=== PATIENT | male | born 1955 | race Caucasian/White ===

== ENCOUNTER → 2021-09-18 | Outpatient (CLI) | payer MEDICAID ==
[2021-09-18 19:57] LABS: Basophils # (A) 0.04 X 10*3/uL (0.00-0.10); Basophils % (A) 0.9 %; Eosinophils # (A) 0.29 X 10*3/uL (0.04-0.35); Eosinophils % (A) 6.2 %; HCT 46.9 % (39.6-50.0); HGB 15.6 g/dL (13.0-17.0); Lymphocytes % (A) 25.6 %; MCH 32.2 pg (27.0-32.0); MCHC 33.3 g/dL (32.0-37.0); MCV 96.7 fL (80.0-97.0); Mean Platelet Volume 10.6 fL (9.5-12.2); Monocytes # (A) 0.51 X 10*3/uL (0.20-1.00); Monocytes % (A) 10.9 %; Neutrophils # (A) 2.63 X 10*3/uL (1.80-7.70); Platelet Count 263 X 10*3/uL (140-440); RBC 4.85 X 10*6/uL (4.40-5.60); RDW 12.7 % (11.5-14.5); WBC 4.69 X 10*3/uL (4.50-10.00)
[2021-09-18 21:00] LABS: Chol/HDL Ratio 1.94 Ratio; LDL Cholesterol,Calculated 82.6 mg/dL (0.0-131.0); Triglycerides 62.2 mg/dL (0.00-149.00); VLDL Calculation 12.44 mg/dL (5.00-40.00)
[2021-09-19 00:42] LABS: African American GFR (CKD) 91.1 (60.0-200.0); Albumin 4.7 g/dL (3.8-4.9); Albumin/Globulin Ratio 1.68 (1.60-3.17); Anion Gap 13.2 mmol/L (4.00-12.00); Calcium 9.9 mg/dL (8.7-10.3); Carbon Dioxide 23.8 mmol/L (21.6-31.8); Globulin 2.8 g/dL (1.6-3.3); Non-African American GFR(CKD) 78.6 (60.0-200.0); PSA Annual Screen 0.6 ng/mL (0.000-4.000); Total Bilirubin 0.7 mg/dL (0.30-1.20); Total Protein 7.5 g/dL (6.2-8.2)
== END | disposition home or self-care (01) ==
LOC: LABWHC1 07:39
PROVIDERS: ATTEND Internal Medicine
DX: Z00.00 Encounter for general adult medical examination without abnormal findings (principal); Z12.5 Encounter for screening for malignant neoplasm of prostate
CPT/HCPCS: 80061; 80053; 85025; 36415; G0103

== ENCOUNTER → 2022-03-12 | Outpatient (CLI) | payer MEDICAID ==
--- NOTE | 2022-03-12 11:40 | CT ---
CT left ankle HISTORY: Presurgical Helical acquisition through the left ankle. Exam performed for preprocedure planning. Coronal and sag ittal reconstructions performed. Automated exposure control for dose reduction, DLP 729 mGycentimeter s No comparisons Osteoarthritic changes noted to the left knee, there is spurring, somewhat lateral displacement of th e patella relation to the femoral condyle, chronic. Some small loose bodies are suspected within the posterior aspect of the left knee joint, findings may be due to synovial ostial chondromatosis, kathrin nal spurring also present at the medial lateral compartments, osteoarthritic changes are present with joint space loss. Marked osteoarthritic changes present at the tibiotalar joint, joint space loss and subchondral scler osis. Geode formation present in the distal fibula. Subchondral cyst formation also present in the an kle mortise. There is soft tissue calcifications at the intertarsal regions, midfoot somewhat plateli ke and appearance. Suspect there is fluid present along the flexor hallucis longus tendon posterior t o the ankle joint, collection measuring 2.3 x 1.6 cm. Ossific density present posterior to the ankle joint measures 13 x 6 mm. Some flattening the ankle mortise, remodeling noted, difficult to exclude u nderlying osteonecrosis with secondary osteoarthritis. Spurring is present at the talonavicular joint . There is a plantar calcaneal spur present. IMPRESSION: Marked arthropathy changes are present, soft tissue calcifications. Procedure performed f or
== END | disposition home or self-care (01) ==
LOC: RADXRMAIN 09:34
PROVIDERS: ATTEND Orthopaedic Surgery Foot and Ankle Surgery
DX: Z01.818 Encounter for other preprocedural examination (principal); M12.872 Other specific arthropathies, not elsewhere classified, left ankle and foot; M79.89 Other specified soft tissue disorders

== ENCOUNTER → 2022-10-30 | Outpatient (CLI) | payer MEDICAID ==
[2022-10-30 14:35] LABS: Basophils # (A) 0.04 X 10*3/uL (0.00-0.10); Basophils % (A) 0.9 %; Eosinophils # (A) 0.26 X 10*3/uL (0.04-0.35); Eosinophils % (A) 5.7 %; HCT 46.6 % (39.6-50.0); Immature Grans, Automated 0.2 %; Lymphocytes % (A) 26.4 %; MCH 32.7 pg (27.0-32.0); MCHC 34.3 g/dL (32.0-37.0); MCV 95.3 fL (80.0-97.0); Mean Platelet Volume 10.3 fL (9.5-12.2); Monocytes # (A) 0.48 X 10*3/uL (0.20-1.00); Monocytes % (A) 10.6 %; NRBC Per 100 WBC 0 /100 WBCS (0.0-0.0); Neutrophils # (A) 2.55 X 10*3/uL (1.80-7.70); Neutrophils % (A) 56.2 %; Platelet Count 255 X 10*3/uL (140-440); RBC 4.89 X 10*6/uL (4.40-5.60); RDW 12.9 % (11.5-14.5); WBC 4.54 X 10*3/uL (4.50-10.00)
[2022-10-30 14:58] LABS: Chol/HDL Ratio 2.01 Ratio; LDL Cholesterol,Calculated 76.4 mg/dL (0.0-131.0)
== END | disposition home or self-care (01) ==
LOC: LABWHC1 07:05
PROVIDERS: ATTEND Internal Medicine
DX: Z00.00 Encounter for general adult medical examination without abnormal findings (principal); Z12.5 Encounter for screening for malignant neoplasm of prostate
CPT/HCPCS: 80061; 85025; 36415; G0103

== ENCOUNTER → 2023-10-30 | Outpatient (CLI) | payer MEDICAID ==
[2023-10-30 11:21] LABS: Basophils # (A) 0.05 X 10*3/uL (0.00-0.10); Eosinophils # (A) 0.28 X 10*3/uL (0.04-0.35); Eosinophils % (A) 5.7 %; HCT 44.1 % (39.6-50.0); HGB 14.9 g/dL (13.0-17.0); Lymphocytes # (A) 1.51 X 10*3/uL (0.90-5.00); Lymphocytes % (A) 30.6 %; MCH 31.9 pg (27.0-32.0); MCHC 33.8 g/dL (32.0-37.0); MCV 94.4 FL (80.0-97.0); Mean Platelet Volume 9.8 FL (9.5-12.2); Monocytes # (A) 0.57 X 10*3/uL (0.20-1.00); Monocytes % (A) 11.6 %; NRBC Per 100 WBC 0 X 10*3/uL (0.00-0.01); Neutrophils % (A) 50.7 %; Platelet Count 260 X 10*3/uL (140-440); RBC 4.67 X 10*6/uL (4.40-5.60); RDW 12.8 % (11.5-14.5); WBC 4.93 X 10*3/uL (4.50-10.00)
[2023-10-30 11:41] LABS: ALT 17 U/L (10-49); AST 20 U/L (14-35); Albumin 4.6 g/dL (3.8-4.9); Albumin/Globulin Ratio 1.59 Ratio (1.60-3.17); Alkaline Phosphatase 77 U/L (41-126); Blood Urea Nitrogen 18.6 mg/dL (9.0-27.0); Calcium 10.3 mg/dL (8.7-10.3); Chloride 102 mmol/L (96-109); Chol/HDL Ratio 2.03 Ratio; Globulin 2.9 g/dL (1.6-3.3); Glucose 102 mg/dL (70-110); LDL Cholesterol,Calculated 83.7 mg/dL (0.0-131.0); Potassium 4.6 mmol/L (3.5-5.5); Sodium 137 mmol/L (135-145); Total Bilirubin 0.8 mg/dL (0.3-1.2); Total Protein 7.5 g/dL (6.2-8.2)
[2023-10-30 11:48] LABS: PSA Annual Screen 0.667 ng/mL (0.000-4.000)
== END | disposition home or self-care (01) ==
LOC: LABWHC1 07:18
PROVIDERS: ATTEND Internal Medicine
DX: Z00.00 Encounter for general adult medical examination without abnormal findings (principal); Z12.5 Encounter for screening for malignant neoplasm of prostate
CPT/HCPCS: 80061; 80053; 85025; 36415; G0103

== ENCOUNTER 2024-05-04 12:06 | Observation (INO) | payer MEDICAID, MEDICARE ==
--- NOTE | 2024-05-04 12:42 | ED ---
General Adult HPI - General Chief complaint: Chest Pain Stated complaint: Chest pain Time Seen by Provider: 05/04/24 12:17 Source: patient, family, RN notes reviewed Mode of arrival: ambulatory Limitations: no limitations - History of Present Illness Initial comments: Patient is a pleasant 68-year-old male present to the emergency department with concern for chest discomfort. No discomfort at this time. Patient woke with symptoms yesterday. Discomfort feels like indigestion. No radiation. There is mild associated dyspnea. Discomfort has been intermittent. Patient was doing a lot of exertion prior to onset of symptoms a couple days before. No nausea. No diaphoresis. No leg pain or leg swelling. No history of similar symptoms previously. No history of cardiac disease. - Related Data Home Medications Medication Instructions Recorded Confirmed Aspirin EC [Ecotrin Low Dose] 81 mg PO DAILY 05/04/24 05/04/24 Benazepril HCl 20 mg PO DAILY 05/04/24 05/04/24 Calm Supplement 1 tab PO DAILY 05/04/24 05/04/24 Clotrimazole/Betameth Cream 1 applic TOPICAL BID PRN 05/04/24 05/04/24 [Lotrisone] Diclofenac Sodium [Voltaren 2 - 4 gm TOPICAL DAILY PRN 05/04/24 05/04/24 Arthritis Pain 1% Gel] Meloxicam [Mobic] 15 mg PO PC-BRKFST 05/04/24 05/04/24 Allergies Allergy/AdvReac Type Severity Reaction Status Date / Time No Known Allergies Allergy Verified 05/04/24 14:11 Review of Systems ROS Statement: Those systems with pertinent positive or pertinent negative responses have been documented in the HPI. ROS Other: All systems not noted in ROS Statement are negative. Constitutional: Denies: fever Eyes: Denies: eye pain ENT: Denies: ear pain Respiratory: Reports: as per HPI. Denies: cough Cardiovascular: Reports: as per HPI, chest pain Endocrine: Denies: fatigue Gastrointestinal: Denies: abdominal pain Musculoskeletal: Denies: back pain Past Medical History Past Medical History: Hypertension Additional Past Medical History / Comment(s): Arthritis History of Any Multi-Drug Resistant Organisms: None Reported Past Surgical History: No Surgical Hx Reported Past Psychological History: No Psychological Hx Reported Smoking Status: Never smoker Past Alcohol Use History: Occasional Past Drug Use History: Marijuana General Exam Limitations: no limitations General appearance: alert, in no apparent distress Head exam: Present: normocephalic ENT exam: Present: normal oropharynx Neck exam: Present: normal inspection Respiratory exam: Present: normal lung sounds bilaterally Cardiovascular Exam: Present: regular rate, normal rhythm, normal heart sounds Expanded Peripheral pulses: 2+: Radial (R), Radial (L), Posterior Tibialis (R), Posterior Tibialis (L), Dorsalis Pedis (R), Dorsalis Pedis (L) GI/Abdominal exam: Present: soft. Absent: tenderness Extremities exam: Present: normal inspection. Absent: pedal edema, calf tenderness Neurological exam: Present: alert Psychiatric exam: Present: normal affect, normal mood Skin exam: Present: normal color Course Vital Signs 05/04/24 05/04/24 05/04/24 12:10 13:10 14:30 Temperature 98.0 F 97.7 F 98.7 F Pulse Rate 64 64 63 Respiratory 18 16 16 Rate Blood Pressure 130/86 145/96 137/100 O2 Sat by Pulse 99 96 98 Oximetry EKG Findings - EKG Results: EKG: interpreted by ERMD, sinus rhythm, normal axis, normal QRS, normal ST/T Medical Decision Making - Medical Decision Making Was pt. sent in by a medical professional or institution (, PA, ASSOCIATE PROFESSOR OF MATHEMATICS, urgent care, hospital, or fci...) When possible be specific @ -No Did you speak to anyone other than the patient for history (EMS, parent, family, police, friend...)? What history was obtained from this source @ -Family is present and helps provide history including onset Did you review nursing and triage notes (agree or disagree)? Why? @ -I reviewed and agree with nursing and triage notes Were old charts reviewed (outside hosp., previous admission, EMS record, old EKG, old radiological studies, urgent care reports/EKG's, fci records)? Report findings @ -No old charts were reviewed Differential Diagnosis (chest pain, altered mental status, abdominal pain women, abdominal pain men, vaginal bleeding, weakness, fever, dyspnea, syncope, headache, dizziness, GI bleed, back pain, seizure, CVA, palpatations, mental health, musculoskeletal)? @ -Differential Chest Pain: Stable Angina, Unstable Angina, STEMI, NSTEMI Aortic Dissection, Pneumothorax, Musculoskeletal, Esophageal Spasm GERD, Cholecystitis, Pancreatitis, Zoster, this is not meant to be an all-inclusive list. EKG interpreted by me (3pts min.). @ -As above X-rays interpreted by me (1pt min.). @ -Chest x-ray shows no acute process CT interpreted by me (1pt min.). @ -CT scan of the chest shows no evidence of pulmonary embolism U/S interpreted by me (1pt. min.). @ -None done What testing was considered but not performed or refused? (CT, X-rays, U/S, labs)? Why? @ -None What meds were considered but not given or refused? Why? @ -None Did you discuss the management of the patient with other professionals (professionals i.e. , PA, ASSOCIATE PROFESSOR OF MATHEMATICS, lab, RT, psych nurse, social media specialist, rear admiral, teacher, chief customer officer, social work case manager)? Give summary @ -Case was discussed with Dr. Macdonald who will admit covering hospital call Was smoking cessation discussed for >3mins.? @ -No Was critical care preformed (if so, how long)? @ -No Were there social determinants of health that impacted care today? How? (Homelessness, low income, unemployed, alcoholism, drug addiction, transportation, low edu. Level, literacy, decrease access to med. care, longterm, rehab)? @ -No Was there de-escalation of care discussed even if they declined (Discuss DNR or withdrawal of care, Hospice)? DNR status @ -No What co-morbidities impacted this encounter? (DM, HTN, Smoking, COPD, CAD, Cancer, CVA, ARF, Chemo, Hep., AIDS, mental health diagnosis, sleep apnea, mo rbid obesity)? @ -None Was patient admitted / discharged? Hospital course, mention meds given and r oute, prescriptions, significant lab abnormalities, going to OR and other pertinent info. @ -Patient presents with chest discomfort. Patient and family updated on results and plan. Patient reevaluated and resting comfortably in bed. Patient will be admitted. [place] orders written. Undiagnosed new problem with uncertain prognosis? @ -No Drug Therapy requiring intensive monitoring for toxicity (Heparin, Nitro, Insulin, Cardizem)? @ -No Were any procedures done? @ -No Diagnosis/symptom? @ -Chest pain Acute, or Chronic, or Acute on Chronic? @ -Acute Uncomplicated (without systemic symptoms) or Complicated (systemic symptoms)? @ -Default Side effects of treatment? @ -No Exacerbation, Progression, or Severe Exacerbation? @ -No Poses a threat to life or bodily function? How? (Chest pain, USA, MD, pneumonia, PE, COPD, DKA, ARF, appy, cholecystitis, CVA, Diverticulitis, Homicidal, S uicidal, threat to staff... and all critical care pts) @ -No - Lab Data Result diagrams: 05/04/24 12:53 05/04/24 12:53 Lab Results 05/04/24 05/04/24 05/04/24 Range/Units 12:53 12:53 12:53 WBC 5.2 (3.8-10.6) k/uL RBC 4.82 (4.30-5.90) m/uL Hgb 15.2 (13.0-17.5) gm/dL Hct 46.8 (39.0-53.0) % MCV 97.1 (80.0-100.0) fL MCH 31.5 (25.0-35.0) pg MCHC 32.5 (31.0-37.0) g/dL RDW 13.1 (11.5-15.5) % Plt Count 266 (150-450) k/uL MPV 8.1 Neutrophils % 62 % Lymphocytes % 22 % Monocytes % 8 % Eosinophils % 4 % Basophils % 1 % Neutrophils # 3.2 (1.3-7.7) k/uL Lymphocytes # 1.1 (1.0-4.8) k/uL Monocytes # 0.4 (0-1.0) k/uL Eosinophils # 0.2 (0-0.7) k/uL Basophils # 0.1 (0-0.2) k/uL PT 11.2 (10.0-12.5) sec INR 1.0 (<1.2) APTT 25.0 (22.0-30.0) sec D-Dimer 0.79 H (<0.60) mg/L FEU Sodium 137 (137-145) mmol/L Potassium 4.0 (3.5-5.1) mmol/L Chloride 107 (98-107) mmol/L Carbon Dioxide 25 (22-30) mmol/L Anion Gap 5 mmol/L BUN 16 (9-20) mg/dL Creatinine 0.80 (0.66-1.25) mg/dL Est GFR (CKD-EPI)AfAm >90 (>60 ml/min/1.73 sqM) Est GFR (CKD-EPI)NonAf >90 (>60 ml/min/1.73 sqM) Glucose 105 H (74-99) mg/dL Calcium 10.0 (8.4-10.2) mg/dL Magnesium 2.3 (1.6-2.3) mg/dL Total Bilirubin 1.3 (0.2-1.3) mg/dL AST 22 (17-59) U/L ALT 15 (4-49) U/L Alkaline Phosphatase 72 (38-126) U/L Troponin I (0.000-0.034) ng/mL NT-Pro-B Natriuret Pep 76 pg/mL Total Protein 7.3 (6.3-8.2) g/dL Albumin 4.5 (3.5-5.0) g/dL 05/04/24 Range/Units 12:53 WBC (3.8-10.6) k/uL RBC (4.30-5.90) m/uL Hgb (13.0-17.5) gm/dL Hct (39.0-53.0) % MCV (80.0-100.0) fL MCH (25.0-35.0) pg MCHC (31.0-37.0) g/dL RDW (11.5-15.5) % Plt Count (150-450) k/uL MPV Neutrophils % % Lymphocytes % % Monocytes % % Eosinophils % % Basophils % % Neutrophils # (1.3-7.7) k/uL Lymphocytes # (1.0-4.8) k/uL Monocytes # (0-1.0) k/uL Eosinophils # (0-0.7) k/uL Basophils # (0-0.2) k/uL PT (10.0-12.5) sec INR (<1.2) APTT (22.0-30.0) sec D-Dimer (<0.60) mg/L FEU Sodium (137-145) mmol/L Potassium (3.5-5.1) mmol/L Chloride (98-107) mmol/L Carbon Dioxide (22-30) mmol/L Anion Gap mmol/L BUN (9-20) mg/dL Creatinine (0.66-1.25) mg/dL Est GFR (CKD-EPI)AfAm (>60 ml/min/1.73 sqM) Est GFR (CKD-EPI)NonAf (>60 ml/min/1.73 sqM) Glucose (74-99) mg/dL Calcium (8.4-10.2) mg/dL Magnesium (1.6-2.3) mg/dL Total Bilirubin (0.2-1.3) mg/dL AST (17-59) U/L ALT (4-49) U/L Alkaline Phosphatase (38-126) U/L Troponin I <0.012 (0.000-0.034) ng/mL NT-Pro-B Natriuret Pep pg/mL Total Protein (6.3-8.2) g/dL Albumin (3.5-5.0) g/dL Disposition Clinical Impression: Chest pain Disposition: ADMITTED IP TO THIS HOSP Is patient prescribed a controlled substance at d/c from ED?: No Referrals: Robert Rose DO [Primary Care Provider] - 1-2 days Time of Disposition: 15:44
[2024-05-04] MEDS: ASPIRIN 81 MG PO STA (12:56)
[2024-05-04] MEDS: NITROGLYCERIN OINT 1 INCH/GM PACKET TOPICAL STA (13:01)
[2024-05-04 13:03] LABS: Basophils # (A) 0.1 k/uL (0-0.2); Basophils % (A) 1 %; Eosinophils # (A) 0.2 k/uL (0-0.7); Eosinophils % (A) 4 %; HCT 46.8 % (39.0-53.0); HGB 15.2 gm/dL (13.0-17.5); Lymphocytes # (A) 1.1 k/uL (1.0-4.8); Lymphocytes % (A) 22 %; MCH 31.5 pg (25.0-35.0); MCHC 32.5 g/dL (31.0-37.0); MCV 97.1 fL (80.0-100.0); Mean Platelet Volume 8.1; Monocytes # (A) 0.4 k/uL (0-1.0); Monocytes % (A) 8 %; Neutrophils # (A) 3.2 k/uL (1.3-7.7); Neutrophils % (A) 62 %; Platelet Count 266 k/uL (150-450); RBC 4.82 m/uL (4.30-5.90); RDW 13.1 % (11.5-15.5); WBC 5.2 k/uL (3.8-10.6)
[2024-05-04 13:20] LABS: ALT 15 U/L (4-49); AST 22 U/L (17-59); African American GFR (CKD) >90 (>60 ml/min/1.73 sqM); Albumin 4.5 g/dL (3.5-5.0); Alkaline Phosphatase 72 U/L (38-126); Anion Gap 5 mmol/L; Blood Urea Nitrogen 16 mg/dL (9-20); Carbon Dioxide 25 mmol/L (22-30); Chloride 107 mmol/L (98-107); Glucose 105 mg/dL (74-99); Magnesium 2.3 mg/dL (1.6-2.3); Non-African American GFR(CKD) >90 (>60 ml/min/1.73 sqM); Sodium 137 mmol/L (137-145); Total Bilirubin 1.3 mg/dL (0.2-1.3); Total Protein 7.3 g/dL (6.3-8.2)
[2024-05-04 13:21] LABS: Prothrombin Time 11.2 sec (10.0-12.5)
[2024-05-04 13:26] LABS: NT-Pro-B-Type Natriuretic Pept 76 pg/mL
--- NOTE | 2024-05-04 13:56 | XR ---
EXAMINATION TYPE: XR chest 2V DATE OF EXAM: 05/04/2024 1:49 PM CLINICAL INDICATION:Male, 68 years old with history of Chest Pain; COMPARISON: None TECHNIQUE: XR chest 2V Frontal and lateral views of the chest. FINDINGS: Lungs/Pleura: There is no evidence of pleural effusion, focal consolidation, or pneumothorax. Pulmonary vascularity: Unremarkable. Heart/mediastinum: Cardiomediastinal silhouette is unremarkable. Musculoskeletal: No acute osseous pathology. IMPRESSION: No acute cardiopulmonary disease/process.
--- NOTE | 2024-05-04 15:31 | CT ---
EXAMINATION TYPE: CT angio chest DATE OF EXAM: 05/04/2024 COMPARISON: Radiograph same day HISTORY: 68-year-old male with chest pain chest pain TECHNIQUE: Contiguous axial scanning of the chest after the administration of 100 mL of Isovue 370. Coronal/sagittal MIP reconstructions performed. CT DLP: 406.6mGycm. Automatic exposure control utilized for a dose reduction. FINDINGS: Heart normal size without pericardial effusion. No flattening of the interventricular septum. Some re flux contrast into the hepatic IVC. 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 Conventional arch vessel branching anatomy. Borderline to mildly enlarged caliber to the main right and left pulmonary arteries measuring up to 2 .6 cm suggesting underlying pulmonary hypertension. No evidence for pulmonary embolus. Some mild septal lines noted in the lower lungs. Additional strandy and patchy probable atelectasis l eft base. No sizable pleural effusion or jerrod consolidation. No thoracic lymphadenopathy by CT size criteria. Trace bilateral gynecomastia. Visualized upper abdomen shows hepatic cysts measuring up to 1.8 cm. Distention of the abdominal IVC. Bones: Moderate to advanced degenerative disc disease mid to lower thoracic spine. Dextroconvex scoli osis upper thoracic thoracic spine. IMPRESSION: 1. No evidence for pulmonary embolus. 2. There may be pulmonary arterial hypertension. Given some septal lines at the lung bases, distentio n of the upper abdominal IVC, and some refluxing contrast into the hepatic IVC, consider early develo ping pulmonary vascular congestion. 3. Some additional patchy density at the left base, suspected atelectasis.
[2024-05-04] MEDS ORDERED: NITROGLYCERIN SL TABS 0.4 MG TAB SUBLINGUAL PRN (15:44)
[2024-05-04 18:13] VITALS: TEMP 98.3
[2024-05-04] MEDS: NITROGLYCERIN OINT 1 INCH/GM PACKET TOPICAL SCH (18:15)
--- NOTE | 2024-05-04 19:20 | P.HPIM ---
History of Present Illness This is a pleasant 68 years old male with past medical history of hypertension, arthritis He presents to emergency room with chief complaint of chest pain started yesterday evening mild to moderate in severity on the left side nonradiating Chest pain usually last for 3 seconds and then stops before it comes back every half an hour Rated currently at 4/10, felt like sharp and burning and decreased by aspirin. Currently he received aspirin and his chest pain improved 0/10 No congestion or dyspnea. No coughing No change in urine or bowel habits. No headache dizziness or weakness. Patient able to ambulate No smoking or illicit drugs, drinks alcohol about once per week He exercises a lot in the gym and doing swimming exercises however his parents got heart disease at the age of 50s. He never smoked. Vitals are stable. Vitals are stable and he is afebrile He has unremarkable CBC, INR, BMP and liver enzymes Chest x-ray is negative for acute process D-dimer mildly elevated 0.79 patient with no respiratory symptoms CTA of the chest is negative for PE, but showed severely hepatic vascular congestion and possible atelectasis EKG showing sinus rhythm at [address]-T changes Troponin negative x 2 less than 0.012 proBNP 76 Patient is on aspirin 81 mg increased to 325 mg in the emergency room Patient was admitted with cardiology consult Review of Systems Review of systems CONSTITUTIONAL: No fever, no malaise, no fatigue. HEENT: No recent visual problems or hearing problems. Denied any sore throat. CARDIOVASCULAR: No orthopnea, PND, no palpitations, no syncope. PULMONARY: No shortness of breath, no cough, no hemoptysis. GASTROINTESTINAL: No diarrhea, no nausea, no vomiting, no abdominal pain. Normoactive bowel sounds. NEUROLOGICAL: No headaches, no weakness, no numbness. HEMATOLOGICAL: Denies any bleeding or petechiae. GENITOURINARY: Denies any burning micturition, frequency, or urgency. MUSCULOSKELETAL/RHEUMATOLOGICAL: Denies any joint pain, swelling, or any muscle pain. ENDOCRINE: Denies any polyuria or polydipsia. Past Medical History Past Medical History: Hypertension Additional Past Medical History / Comment(s): Arthritis History of Any Multi-Drug Resistant Organisms: None Reported Past Surgical History: No Surgical Hx Reported Past Psychological History: No Psychological Hx Reported Smoking Status: Never smoker Past Alcohol Use History: Occasional Past Drug Use History: Marijuana Medications and Allergies Home Medications Medication Instructions Recorded Confirmed Type Aspirin EC [Ecotrin Low Dose] 81 mg PO DAILY 05/04/24 05/04/24 History Benazepril HCl 20 mg PO DAILY 05/04/24 05/04/24 History Calm Supplement 1 tab PO DAILY 05/04/24 05/04/24 History Clotrimazole/Betameth Cream 1 applic TOPICAL BID PRN 05/04/24 05/04/24 History [Lotrisone] Diclofenac Sodium [Voltaren 2 - 4 gm TOPICAL DAILY PRN 05/04/24 05/04/24 History Arthritis Pain 1% Gel] Meloxicam [Mobic] 15 mg PO PC-BRKFST 05/04/24 05/04/24 History Allergies Allergy/AdvReac Type Severity Reaction Status Date / Time No Known Allergies Allergy Verified 05/04/24 14:11 Physical Exam Vitals: Vital Signs Temp Pulse Resp BP Pulse Ox 05/04/24 18:09 98.3 F 73 17 133/99 98 05/04/24 16:46 98.1 F 69 16 143/94 95 05/04/24 14:30 98.7 F 63 16 137/100 98 05/04/24 13:10 97.7 F 64 16 145/96 96 05/04/24 12:10 98.0 F 64 18 130/86 99 Intake and Output 05/04/24 05/04/24 05/04/24 06:59 14:59 22:59 Other: Weight 81.647 kg GENERAL: The patient is alert and oriented x3, not in any acute distress. Well developed, well nourished. HEENT: Pupils are round and equally reacting to light. EOMI. No scleral icterus. No conjunctival pallor. Normocephalic, atraumatic. No pharyngeal erythema. No thyromegaly. CARDIOVASCULAR: S1 and S2 present. No murmurs, rubs, or gallops. PULMONARY: Chest is clear to auscultation, no wheezing , no crackles. ABDOMEN: Soft, nontender, nondistended, normoactive bowel sounds. No palpable organomegaly. MUSCULOSKELETAL: No joint swelling or deformity. EXTREMITIES: No cyanosis, clubbing, or pedal edema. NEUROLOGICAL: Gross neurological examination did not reveal any focal deficits. SKIN: No rashes. no petechiae. Results CBC & Chem 7: 05/04/24 12:53 05/04/24 12:53 Labs: Abnormal Lab Results - Last 24 Hours (Table) 05/04/24 05/04/24 Range/Units 12:53 12:53 D-Dimer 0.79 H (<0.60) mg/L FEU Glucose 105 H (74-99) mg/dL Assessment and Plan Assessment: Chest pain, rule out cardiac causes, currently improved Hypertension History of pericarditis Mildly elevated D-dimer with negative CTA for pulmonary embolism Plan: Continue with aspirin 325 mg Cardiology consult GI prophylaxis Pepcid DVT prophylaxis subcu heparin Prognosis guarded
[2024-05-04] MEDS: FAMOTIDINE 20 MG/2 ML VIAL IV SCH (20:53)
[2024-05-04] MEDS: HEPARIN SODIUM,PORCINE 5,000 UNIT/ML 1 ML VIAL SQ SCH (20:53)
--- NOTE | 2024-05-05 07:24 | P.PN ---
Subjective This is a pleasant 68 years old male with past medical history of hypertension, arthritis He presents to emergency room with chief complaint of chest pain started yesterday evening mild to moderate in severity on the left side nonradiating Chest pain usually last for 3 seconds and then stops before it comes back every half an hour Rated currently at 4/10, felt like sharp and burning and decreased by aspirin. Currently he received aspirin and his chest pain improved 0/10 No congestion or dyspnea. No coughing No change in urine or bowel habits. No headache dizziness or weakness. Patient able to ambulate No smoking or illicit drugs, drinks alcohol about once per week He exercises a lot in the gym and doing swimming exercises however his parents got heart disease at the age of 50s. He never smoked. Vitals are stable. Vitals are stable and he is afebrile He has unremarkable CBC, INR, BMP and liver enzymes Chest x-ray is negative for acute process D-dimer mildly elevated 0.79 patient with no respiratory symptoms CTA of the chest is negative for PE, but showed severely hepatic vascular congestion and possible atelectasis EKG showing sinus rhythm at [address]-T changes Troponin negative x 2 less than 0.012 proBNP 76 Patient is on aspirin 81 mg increased to 325 mg in the emergency room Patient was admitted with cardiology consult 05/05/24 Patient states he has only 1 episode of chest pain that last for few seconds as usual overnight. Currently with no chest pain or dyspnea. He feels fine No other new complaint Hemodynamically stable. Echocardiogram is ordered Objective - Vital Signs Vital signs: Vital Signs Temp 98.3 F 05/04/24 18:09 Pulse 60 05/05/24 06:00 Resp 16 05/05/24 06:00 BP 114/72 05/05/24 06:00 Pulse Ox 94 L 05/05/24 06:00 FiO2 Intake & Output 05/04/24 05/05/24 05/05/24 18:59 06:59 18:59 Weight 81.647 kg - Exam GENERAL: The patient is alert and oriented x3, not in any acute distress. Well developed, well nourished. HEENT: Pupils are round and equally reacting to light. EOMI. No scleral icterus. No conjunctival pallor. Normocephalic, atraumatic. No pharyngeal erythema. No thyromegaly. CARDIOVASCULAR: S1 and S2 present. No murmurs, rubs, or gallops. PULMONARY: Chest is clear to auscultation, no wheezing , no crackles. ABDOMEN: Soft, nontender, nondistended, normoactive bowel sounds. No palpable organomegaly. MUSCULOSKELETAL: No joint swelling or deformity. EXTREMITIES: No cyanosis, clubbing, or pedal edema. NEUROLOGICAL: Gross neurological examination did not reveal any focal deficits. SKIN: No rashes. no petechiae. - Labs CBC & Chem 7: 05/04/24 12:53 05/04/24 12:53 Labs: Abnormal Lab Results - Last 24 Hours (Table) 05/04/24 05/04/24 Range/Units 12:53 12:53 D-Dimer 0.79 H (<0.60) mg/L FEU Glucose 105 H (74-99) mg/dL Assessment and Plan Assessment: Chest pain, rule out cardiac causes, currently improved Hypertension History of pericarditis Mildly elevated D-dimer with negative CTA for pulmonary embolism Plan: Continue with aspirin 325 mg Cardiology consult GI prophylaxis Pepcid DVT prophylaxis subcu heparin Prognosis guarded
[2024-05-05] MEDS ORDERED: ASPIRIN 325 MG TAB PO SCH (09:00)
[2024-05-05] MEDS ORDERED: lisinopriL 5 MG TAB PO SCH (09:00)
[2024-05-05] MEDS: ASPIRIN 81 MG PO SCH (09:35)
[2024-05-05] MEDS: FAMOTIDINE 20 MG TAB PO SCH (09:35)
[2024-05-05] MEDS: lisinopriL 20 MG TAB PO SCH (09:35)
[2024-05-05] MEDS ORDERED: ACETAMINOPHEN TAB 325 MG TAB PO STA (09:45)
[2024-05-05] MEDS ORDERED: ACETAMINOPHEN TAB 325 MG TAB PO PRN (09:45)
[2024-05-05 10:41] LABS: Chol/HDL Ratio 2.26 Ratio; LDL Cholesterol,Calculated 75.1 mg/dL (0.0-131.0)
--- NOTE | 2024-05-05 11:16 | P.CRDCN ---
History of Present Illness Consult date: 05/05/24 Consult reason: chest pain History of present illness: This is a 68-year-old male with with no previous cardiac history and does not follow with a asset protection detective. He has a past medical history of hypertension. We have been asked to evaluate the patient for chest pain. Patient states that he developed a burning type chest pain on Saturday morning it felt like indigestion but it persisted all day. It was shooting type of pain that was coming and going every 3 seconds. He states he had less frequently on Saturday about every hour. He denies any history of smoking. He uses marijuana occasionally. He drinks 3-4 alcoholic beverages on the weekend. He does have family history of father with coronary artery disease in his 50s. Patient denies having any chest pain at this time. He does complain of headache and Nitropaste will be removed. Patient does states that he does have a problems with his ankles but is agreeable to try and walk on a treadmill. Patient is seen today in the emergency center waiting for bed on the observation unit EKG: Normal sinus rhythm with nonspecific T wave inversion Chest x-ray: No acute process CTA of the chest reveals no evidence of pulmonary embolus. Pulmonary hypertension. Consider early developing pulmonary vascular congestion. Patchy density at the left base suspect atelectasis. Laboratory studies: Hemoglobin 15.2. D-dimer 0.79. Creatinine 0.8. Troponin negative x 3. proBNP 76. Triglycerides 120, cholesterol 178, LDL 75. Home cardiac medications: Aspirin 81 mg daily, benazepril 20 mg daily. Review Of Systems: At the time of my exam: CONSTITUTIONAL: Denies fever or chills. Reports headache. HEENT: Denies blurred vision, vision changes, or eye pain. Denies hemoptysis CARDIOVASCULAR: Denies chest pain. Denies orthopnea. Denies PND. Denies palpitations RESPIRATORY: Denies shortness of breath. GASTROINTESTINAL: Denies abdominal pain. Denies nausea or vomiting. HEMATOLOGIC: Denies bleeding disorders. GENITOURINARY: Denies any blood in urine. SKIN: Denies puritis. Denies rash. Physical examination: Gen: This is a 68-year-old male in no acute distress. VS: reviewed HEENT: Head is atraumatic, normocephalic. Pupils equal, round. Sclerae is anicteric. NECK: Supple. No JVD. LUNGS: Clear to auscultation. No wheezes or rhonchi. No intercostal retractions. HEART: Regular rate and rhythm. No murmur. ABDOMEN: Soft No tenderness. EXTREMITIES: No pedal edema. No calf tenderness. NEUROLOGICAL: Patient is awake, alert and oriented x3. Assessment: Atypical chest pain, acute coronary syndrome ruled out with negative troponins Family history of premature coronary artery disease in his father Possible pulmonary hypertension seen on CTA Hypertension Plan: Resume patient's home cardiac medications Discontinue Nitropaste Obtain stress echocardiogram today Obtain 2-D echocardiogram and Doppler study to assess cardiac structure and function If testing is unremarkable, patient is cleared for discharge from cardiology and may follow-up in the office in 1 to 2 weeks. Thank you kindly for this consultation. Nurse practitioner note has been reviewed, I agree with documented findings and plan of care. Patient was seen and examined. Past Medical History Past Medical History: Hypertension Additional Past Medical History / Comment(s): Arthritis History of Any Multi-Drug Resistant Organisms: None Reported Past Surgical History: No Surgical Hx Reported Past Psychological History: No Psychological Hx Reported Smoking Status: Never smoker Past Alcohol Use History: Occasional Past Drug Use History: Marijuana Medications and Allergies Home Medications Medication Instructions Recorded Confirmed Type Aspirin EC [Ecotrin Low Dose] 81 mg PO DAILY 05/04/24 05/04/24 History Benazepril HCl 20 mg PO DAILY 05/04/24 05/04/24 History Calm Supplement 1 tab PO DAILY 05/04/24 05/04/24 History Clotrimazole/Betameth Cream 1 applic TOPICAL BID PRN 05/04/24 05/04/24 History [Lotrisone] Diclofenac Sodium [Voltaren 2 - 4 gm TOPICAL DAILY PRN 05/04/24 05/04/24 History Arthritis Pain 1% Gel] Meloxicam [Mobic] 15 mg PO PC-[id number] 05/04/24 05/04/24 History Allergies Allergy/AdvReac Type Severity Reaction Status Date / Time No Known Allergies Allergy Verified 05/04/24 14:11 Physical Exam Vitals: Vital Signs Temp Pulse Resp BP Pulse Ox 05/05/24 06:00 60 16 114/72 94 L 05/05/24 02:02 62 16 110/66 99 05/04/24 20:00 76 16 103/81 93 L 05/04/24 18:09 98.3 F 73 17 133/99 98 05/04/24 16:46 98.1 F 69 16 143/94 95 05/04/24 14:30 98.7 F 63 16 137/100 98 05/04/24 13:10 97.7 F 64 16 145/96 96 05/04/24 12:10 98.0 F 64 18 130/86 99 Results 05/04/24 12:53 05/04/24 12:53 Cardiac Enzymes 05/04/24 05/04/24 05/04/24 Range/Units 12:53 12:53 15:56 AST 22 (17-59) U/L Troponin I <0.012 <0.012 (0.000-0.034) ng/mL 05/04/24 Range/Units 18:57 AST (17-59) U/L Troponin I <0.012 (0.000-0.034) ng/mL Coagulation 05/04/24 Range/Units 12:53 PT 11.2 (10.0-12.5) sec APTT 25.0 (22.0-30.0) sec CBC 05/04/24 Range/Units 12:53 WBC 5.2 (3.8-10.6) k/uL RBC 4.82 (4.30-5.90) m/uL Hgb 15.2 (13.0-17.5) gm/dL Hct 46.8 (39.0-53.0) % Plt Count 266 (150-450) k/uL Comprehensive Metabolic Panel 05/04/24 Range/Units 12:53 Sodium 137 (137-145) mmol/L Potassium 4.0 (3.5-5.1) mmol/L Chloride 107 (98-107) mmol/L Carbon Dioxide 25 (22-30) mmol/L BUN 16 (9-20) mg/dL Creatinine 0.80 (0.66-1.25) mg/dL Glucose 105 H (74-99) mg/dL Calcium 10.0 (8.4-10.2) mg/dL AST 22 (17-59) U/L ALT 15 (4-49) U/L Alkaline Phosphatase 72 (38-126) U/L Total Protein 7.3 (6.3-8.2) g/dL Albumin 4.5 (3.5-5.0) g/dL Current Medications Generic Name Dose Route Start Last Admin Trade Name Freq PRN Reason Stop Dose Admin Aspirin 81 mg 05/05/24 09:00 Aspirin 81 Mg PO DAILY [facility] Famotidine 20 mg 05/05/24 09:00 Famotidine 20 Mg Tab PO BID [facility] Heparin Sodium (Porcine) 5,000 unit 05/04/24 21:00 05/04/24 20:53 Heparin Sodium,Porcine 5,000 Unit/Ml 1 Ml Vial SQ 5,000 unit Q12HR [facility] Administration Lisinopril 20 mg 05/05/24 09:00 Lisinopril 20 Mg Tab PO DAILY [facility] Nitroglycerin 0.4 mg 05/04/24 15:44 Nitroglycerin Sl Tabs 0.4 Mg Tab SUBLINGUAL Q5M PRN Chest Pain Nitroglycerin 1 inch 05/04/24 18:00 05/05/24 06:47 Nitroglycerin Oint 1 Inch/Gm Packet TOPICAL 1 inch Q6HR JAYANT Administration 05/04/24 12:53 05/04/24 12:53
--- NOTE | 2024-05-05 11:37 | CA ---
Transthoracic Echo Report Name: Ronen Anguiano Age: 68 Gender: M : 1955 Exam Date: 05/05/2024 08:46 Exam Location: [facility] Ht (in): 68 Wt (lb): 180 Ordering Physician: Juan Jose Saavedra DO Attending/Referring Phys: Process Engineering Intern Sadia Patricio RDCS Procedure CPT: Indications: CP Cardiac Hx: Technical Quality: Good Contrast 1: Total Dose (mL): Contrast 2: Total Dose (mL): MEASUREMENTS (Male / Female) Normal Values 2D ECHO LV Diastolic Diameter PLAX 6.1 cm 4.2 - 5.9 / 3.9 - 5.3 cm LV Systolic Diameter PLAX 3.7 cm IVS Diastolic Thickness 0.8 cm 0.6 - 1.0 / 0.6 - 0.9 cm LVPW Diastolic Thickness 1.1 cm 0.6 - 1.0 / 0.6 - 0.9 cm LV Relative Wall Thickness 0.3 LVOT Diameter 2.6 cm LV Diastolic Volume MOD BP 150.0 cm??? 67 - 155 / 56 - 104 cm??? LV Systolic Volume MOD BP 56.4 cm??? 22 - 58 / 19 - 49 cm??? LV Ejection Fraction MOD BP 62.4 % >= 55 % LV Cardiac Index MOD BP 2954.7 cm???/min???m??? LV Diastolic Volume MOD 4C 146.3 cm??? LV Systolic Volume MOD 4C 61.9 cm??? LV Ejection Fraction MOD 4C 57.7 % LV Cardiac Index MOD 4C 2663.5 cm???/min???m??? LV Diastolic Length 4C 9.2 cm LV Systolic Length 4C 7.5 cm LV Diastolic Volume MOD 2C 147.6 cm??? LV Systolic Volume MOD 2C 51.9 cm??? LV Ejection Fraction MOD 2C 64.8 % LV Cardiac Index MOD 2C 3019.1 cm???/min???m??? LV Diastolic Length 2C 8.8 cm LV Systolic Length 2C 7.5 cm LA Volume 62.8 cm??? 18 - 58 / 22 - 52 cm??? LA Volume Index 31.5 cm???/m??? 16 - 28 cm???/m??? Ascending Aorta Diameter 4.3 cm DOPPLER AV Peak Velocity 123.2 cm/s AV Peak Gradient 6.1 mmHg AV Mean Velocity 87.4 cm/s AV Mean Gradient 3.4 mmHg AV Velocity Time Integral 26.8 cm LVOT Peak Velocity 103.6 cm/s LVOT Peak Gradient 4.3 mmHg LVOT Velocity Time Integral 21.5 cm LVOT Stroke Volume 112.4 cm??? LVOT Stroke Volume Index 57.5 ml/m??? LVOT Cardiac Index 3549.3 cm???/min???m??? AV Area Cont Eq vti 4.2 cm??? AV Area Cont Eq pk 4.4 cm??? MV Area PHT 3.3 cm??? Mitral E Point Velocity 48.4 cm/s Mitral A Point Velocity 61.4 cm/s Mitral E to A Ratio 0.8 MV Deceleration Time 228.6 ms TR Peak Velocity 207.2 cm/s TR Peak Gradient 17.2 mmHg PV Peak Velocity 82.5 cm/s PV Peak Gradient 2.7 mmHg FINDINGS Left Ventricle Left ventricular ejection fraction is estimated at 55-60 %. Mildly increased left ventricular diastolic diameter. Left ventricular wall thickness normal. No obvious regional wall motion abnormalities. Right Ventricle Normal right ventricular size and function. Right Atrium Normal right atrial size. Left Atrium Mildly increased left atrial volume. Mitral Valve Mitral valve thickened. No evidence for mitral valve prolapse. No mitral stenosis. Trace to mild mitral regurgitation. Aortic Valve Trileaflet aortic valve. No aortic valve stenosis or regurgitation. Tricuspid Valve Structurally normal tricuspid valve. No tricuspid stenosis. Trace to mild tricuspid regurgitation. Pulmonic Valve Structurally normal pulmonic valve. No pulmonic stenosis. Trace pulmonic regurgitation. Pericardium No pericardial effusion. Aorta Aortic annulus normal. Ascending aorta mildly enlarged. CONCLUSIONS Left ventricular ejection fraction is estimated at 55-60 %. No obvious regional wall motion abnormalities. Normal RV size and function Mild left atrial dilatation No significant valvular dysfunction Previewed by: Dr Bryan Mcmahan (Electronically Signed) Final Date: 05 May 2024 11:36
--- NOTE | 2024-05-05 13:10 | CA ---
Stress Echo Report Ronen Anguiano Age: 68 Gender: M : 1955 Exam Date: 05/05/2024 12:00 Exam Location: [facility] Ht (in): 68 Wt (lb): 180 Ordering Physician: Dorita Fraga Referring Physician: [id number] Stage Driver: Mayra Plata RDCS Technologist Procedure CPT: Indication: CP, ICD-9 Codes: Rhythm: Patient History: CHEST PAIN, HTN, FAMILY HX OF HEART DISEASE, Cardiac Medications: Medications in past 24 hours: Contrast: Stress Results Protocol: Keegan Total dose(mL): Exercise Duration (min:sec): 6:[address] Depression (mm): Angina Score: Leal Score: METS: 6.4 Resting HR: 72 Resting BP: 155 / 75 Peak HR: 136 Peak BP: 211 / 107 Max Predicted HR: 153 89 % Max Predicted HR Target HR: 130 Double Product: [id number] Stress Summary: Patient exercised on Keegan protocol for 6 minutes 4 seconds. Patient was able to achieve 89% of age-predicted maximum heart rate. Patient was able to complete 6.7 METS. Patient did have peak blood pressure of 211 mmHg. He did not encounter any chest pain chest pressure or followed for out of ordinary shortness of breath during treadmill stress protocol BP Response: Hypertensive at baseline, Reason for Termination: MAX EXERTION/TARGET HR Cardiac Symptoms: NO SYMPTOMS ECG Analysis Resting ECG: Normal sinus rhythm, normal axis, no significant resting ST or T wave changes. Normal ECG Stress ECG: No significant ST or T wave changes that are diagnostic for ischemia by ST segment analysis. Arrhythmia: There were no sustained arrhythmias or ectopic beats noted during the stress test Echo Analysis Resting Echo: Normal global and segmental systolic function. No resting regional wall motion abnormality Peak Echo Analysis: Stress echo images were obtained heart rate of around 100 bpm. This is 65% of age-predicted maximal heart rate. At 65% there is normal global and segmental systolic function and there is no stress-induced regional wall motion abnormality. However stress images are nondiagnostic for ischemia as we are not at 85% of max heart rate. MEASUREMENTS (Male/Female) Normal Values CONCLUSIONS Fair excess tolerance for age achieving 6.4 METS Nonischemic ECG response to treadmill exercise Nondiagnostic stress echocardiogram, as images were obtained at 65% of max heart rate. At 65% max heart rate no evidence of ischemia. Hypertensive at baseline. Overall nondiagnostic stress echo with low probability for obstructive CAD based on treadmill stress echo. Dr Bryan Mcmahan (Electronically Signed) Final Date: 05 May 2024 13:09
[2024-05-05 14:08] VITALS: BP 142/98; PULSE 71; RESP 20
== END 2024-05-05 14:19 | disposition home or self-care (01) ==
LOC: EC 12:06 → 6NMEDSUR 15:47
PROVIDERS: ADMIT Internal Medicine; ATTEND Internal Medicine
DX: R07.89 Other chest pain (principal); I10 Essential (primary) hypertension; M19.90 Unspecified osteoarthritis, unspecified site; R79.89 Other specified abnormal findings of blood chemistry; G44.40 Drug-induced headache, not elsewhere classified, not intractable; T46.3X5A Adverse effect of coronary vasodilators, initial encounter; Z79.82 Long term (current) use of aspirin; Z79.1 Long term (current) use of non-steroidal anti-inflammatories (NSAID); Z79.899 Other long term (current) drug therapy; Z86.79 Personal history of other diseases of the circulatory system; Z82.49 Family history of ischemic heart disease and other diseases of the circulatory system
CPT/HCPCS: 96372 ×2; 96374; 99285; 36415; 93005 ×2; 93306; 93351; 85379; 83880; 80061; 80053; 83735; 84484; 85025; 85610; 85730; 71046; 71275; G0378 ×2; J1644 ×2; J3490; Q9967

== ENCOUNTER → 2024-11-03 | Outpatient (CLI) | payer MEDICAID ==
[2024-11-03 10:58] LABS: HCT 46.3 % (39.6-50.0); HGB 15.4 g/dL (13.0-17.0); MCH 31.9 pg (27.0-32.0); MCHC 33.3 g/dL (32.0-37.0); MCV 95.9 FL (80.0-97.0); Mean Platelet Volume 10.4 FL (9.5-12.2); NRBC Per 100 WBC 0 X 10*3/uL (0.00-0.01); Platelet Count 279 X 10*3/uL (140-440); RBC 4.83 X 10*6/uL (4.40-5.60); RDW 13.2 % (11.5-14.5); WBC 4.99 X 10*3/uL (4.50-10.00)
[2024-11-03 10:59] LABS: Basophils # (A) 0.04 X 10*3/uL (0.00-0.10); Basophils % (A) 0.8 %; Eosinophils # (A) 0.26 X 10*3/uL (0.04-0.35); Eosinophils % (A) 5.2 %; Lymphocytes # (A) 1.46 X 10*3/uL (0.90-5.00); Lymphocytes % (A) 29.3 %; Monocytes # (A) 0.49 X 10*3/uL (0.20-1.00); Monocytes % (A) 9.8 %; Neutrophils # (A) 2.72 X 10*3/uL (1.80-7.70); Neutrophils % (A) 54.5 %
[2024-11-03 11:09] LABS: ALT 15 U/L (10-49); AST 21 U/L (14-35); Albumin 4.7 g/dL (3.8-4.9); Albumin/Globulin Ratio 1.52 Ratio (1.60-3.17); Alkaline Phosphatase 80 U/L (41-126); Blood Urea Nitrogen 19.5 mg/dL (9.0-27.0); Calcium 10.4 mg/dL (8.7-10.3); Carbon Dioxide 24.8 mmol/L (21.6-31.8); Chloride 103 mmol/L (96-109); Chol/HDL Ratio 2.01 Ratio; Globulin 3.1 g/dL (1.6-3.3); Glucose 118 mg/dL (70-110); LDL Cholesterol,Calculated 68.5 mg/dL (0.0-131.0); PSA Annual Screen 0.567 ng/mL (0.000-4.000); Potassium 4.5 mmol/L (3.5-5.5); Sodium 141 mmol/L (135-145); Total Bilirubin 1.5 mg/dL (0.3-1.2); Total Protein 7.8 g/dL (6.2-8.2)
== END | disposition home or self-care (01) ==
LOC: LABWHC1 07:06
PROVIDERS: ATTEND Internal Medicine
DX: Z00.00 Encounter for general adult medical examination without abnormal findings (principal); Z12.5 Encounter for screening for malignant neoplasm of prostate
CPT/HCPCS: 80061; 80053; 85025; 36415; G0103

== ENCOUNTER 2024-11-09 09:19 | Day surgery (SDC) | payer MEDICAID ==
[2024-11-06 10:04] VITALS: BMI 26.1
[~2024-11-09 09:19] MED LIST: LIDOCAINE 1% (10MG/ML) FOR IV START INTRADERMA PRN
[2024-11-09 10:11] VITALS: RESP 16; TEMP 98.2
[2024-11-09] MEDS: IV FLUID CONTINUATION 1,000 ML IV ONE ×2 (10:17→10:57)
[2024-11-09] MEDS: LACTATED RINGERS 1,000 ML IV SCH (10:21)
[2024-11-09] MEDS ORDERED: PROPOFOL 10 MG/ML 20 ML VIAL IV ONE (10:58)
--- NOTE | 2024-11-09 11:15 | P.PCN ---
Date of Procedure: 11/09/24 Procedure(s) Performed: BRIEF HISTORY: Patient is a 69-year-old pleasant white male scheduled for an elective colonoscopy as a part of evaluation for history of colon polyps. Last colonoscopy was 5 years ago. PROCEDURE PERFORMED: Colonoscopy. PREOPERATIVE DIAGNOSIS: History of colon polyps. IV sedation per Anesthesia. PROCEDURE: After informed consent was obtained, the patient, was brought into the endoscopy unit. IV sedation was administered by Anesthesia under continuous monitoring. Digital rectal examination was normal. Initially the Olympus CF-160 flexible video colonoscope was then inserted in the rectum, gradually advanced into the cecum without any difficulty. Careful examination was performed as the scope was gradually being withdrawn. Ileocecal valve and the appendiceal orifice were visualized and appeared normal. Prep was excellent. Mucosa of the cecum, ascending colon, transverse colon, descending colon, sigmoid colon, and rectum appeared normal. Scattered sigmoid diverticulosis retroflexion was performed in the rectum and no lesions were seen. The patient tolerated the procedure well. IMPRESSION: Normal-appearing colon from rectum to cecum no evidence of colorectal neoplasia. Sigmoid diverticulosis. RECOMMENDATIONS: Findings of this examination were discussed with the patient as well as his family. He was advised to have repeat colonoscopy in 10 years..
[2024-11-09 11:29] VITALS: BP 112/83; PULSE 82
== END 2024-11-09 11:52 | disposition home or self-care (01) ==
LOC: ORWHC2ENDO 09:19
PROVIDERS: ATTEND Internal Medicine Gastroenterology
DX: Z12.11 Encounter for screening for malignant neoplasm of colon (principal); K57.30 Diverticulosis of large intestine without perforation or abscess without bleeding; I10 Essential (primary) hypertension; Z79.1 Long term (current) use of non-steroidal anti-inflammatories (NSAID); Z79.899 Other long term (current) drug therapy; Z86.0100 Personal history of colon polyps, unspecified
CPT/HCPCS: J2704; G0121